=== PATIENT | male | born 1980 | race Caucasian/White ===

== ENCOUNTER → 2016-07-11 | Outpatient (CLI) | payer OTHER ==
[~2016-07-11] MED LIST: BENA25TA4 PO; BUSP10TA PO; DRIS50002 PO; GABA600T PO; HYDR-4274 PO; LATU1TAB PO; LITH1TAB4 PO; LITH300C PO; LITH30TASA PO; LITH45TASA PO; MULT1TAB8 PO; OLAN15TA PO; PAXI30TA11 PO; SERO50TA PO; TRAZO50TA PO; VITA100L PO; ZYPR5TAB2 PO
[2016-07-11 13:24] LABS: MEAN CORPUSCULAR HEMOGLOBIN 30.2 pg (27.0-33.0); MEAN CORPUSCULAR HGB CONC 34.2 g/dl (32.0-36.5); MEAN CORPUSCULAR VOLUME 88.1 fl (80.0-96.0); PLATELET COUNT, AUTOMATED 220 k/mm3 (150-450); RED CELL DISTRIBUTION WIDTH 13.2 % (11.5-14.5); WHITE BLOOD COUNT 8.1 K/mm3 (4.0-10.0)
[2016-07-11 13:41] LABS: BASOPHILS 2 % (0-4); EOSINOPHILS 8 % (0-5)
[2016-07-11 13:56] LABS: CONTROL LINE INT CTR LINE PRESENT; HIV SCRN NEGATIVE (NEGATIVE); HIV SCRN1 NEGATIVE (NEGATIVE)
[2016-07-11 14:08] LABS: ALBUMIN 4.2 GM/DL (3.2-5.2); ALKALINE PHOSPHATASE 83 U/L (45-117); ALT/SGPT 27 U/L (12-78); ANION GAP 8 MEQ/L (8-16); AST/SGOT 15 U/L (15-37); BILIRUBIN,TOTAL 1.2 MG/DL (0.2-1.0); BLOOD UREA NITROGEN 6 MG/DL (7-18); CARBON DIOXIDE LEVEL 27 MEQ/L (21-32); CHLORIDE LEVEL 108 MEQ/L (98-107); CREATININE FOR GFR 1.05 MG/DL (0.70-1.30); GLOMERULAR FILTRATION RATE > 60.0 (>60); GLUCOSE, FASTING 95 MG/DL (70-105); POTASSIUM SERUM 3.9 MEQ/L (3.5-5.1); SODIUM LEVEL 143 MEQ/L (136-145); TOTAL PROTEIN 6.3 GM/DL (6.4-8.2)
== END ==
LOC: M LAB 11:53
PROVIDERS: ATTEND Family Medicine
DX: F11.20 Opioid dependence, uncomplicated (principal)

== ENCOUNTER → 2016-08-07 | Outpatient (CLI) | payer OTHER | LOC: M LAB 10:17 | PROVIDERS: ATTEND Nurse Practitioner Psychiatric/Mental Health | DX: F31.72 Bipolar disorder, in full remission, most recent episode hypomanic (principal); Z51.81 Encounter for therapeutic drug level monitoring; Z79.899 Other long term (current) drug therapy ==

== ENCOUNTER 2016-10-20 15:59 | Emergency (ER) | payer OTHER ==
[~2016-10-20] VITALS: Ht 190.5 cm; Wt 83.9 kg
[2016-10-20] MEDS ORDERED: METH40TA PO (16:26)
[2016-10-20] MEDS ORDERED: TRAZ100T4 (16:26)
[2016-10-20] MEDS ORDERED: GABA-283 PO (16:26)
[2016-10-20] MEDS ORDERED: ALBU17IN (16:26)
[2016-10-20] MEDS ORDERED: CEFT500T3 (16:26)
[2016-10-20] MEDS ORDERED: IPRATROPIUM 0.5MG/ALBUTEROL 2.5MG INH SOL UD 3ML (DUONEB)(J7620) NEB ONE (17:00)
[2016-10-20] MEDS ORDERED: PRED20TA PO (17:58)
--- NOTE | 2016-10-20 18:00 | REP ---
CHEST, TWO VIEWS: REASON: Cough. PRIORS: None. FINDINGS: The superior mediastinal structures are midline. The cardiac silhouette is unremarkable in size, shape, and position. The diaphragmatic surfaces of the lungs are regular, and the costophrenic angles are clear. The pulmonary barriga are clear. The imaged osseous structures are intact. IMPRESSION: There is no acute cardiopulmonary disease. Signed by Eliseo Thomas DO 10/20/2016 07:11 P
[2016-10-20 18:08] VITALS: BP 134/70
== END 2016-10-20 18:09 | disposition home or self-care (01) ==
LOC: M ED 17:43
DX: J44.0 Chronic obstructive pulmonary disease with (acute) lower respiratory infection (principal); Z79.891 Long term (current) use of opiate analgesic; Z79.899 Other long term (current) drug therapy; Z79.52 Long term (current) use of systemic steroids; Z88.0 Allergy status to penicillin; Z88.2 Allergy status to sulfonamides; F17.210 Nicotine dependence, cigarettes, uncomplicated

== ENCOUNTER 2017-01-11 19:19 | Emergency (ER) | payer OTHER ==
[~2017-01-11] VITALS: Ht 190.5 cm; Wt 86.3 kg
[~2017-01-11 19:19] MED LIST changes: +ALBU17IN; +CEFT500T3; +GABA-283 PO; -HYDR-4274 PO; +HYDR50TA70 PO; +LITH300T PO; -LITH30TASA PO; +METH40TA PO; +PRED20TA PO; +TRAZ-136
[2017-01-11] MEDS ORDERED: METH40TA PO (19:33)
[2017-01-11] MEDS ORDERED: ALBU17IN INH (20:52)
[2017-01-11 21:05] VITALS: BP 110/75
--- NOTE | 2017-01-12 08:03 | REP ---
Clinical: Shortness of breath and wheezing . Comparison: 10/20/2016 . Technique: PA and lateral. Findings: The mediastinum and cardiac silhouette are normal. The lung barriga demonstrate chronic-appearing changes without acute consolidation, effusion, or pneumothorax. The skeletal structures are intact and normal. Impression: 1. No acute cardiopulmonary process. Signed by Barrett Saha MD 01/12/2017 07:54 A
--- NOTE | 2017-01-12 20:49 | ECGEPIP ---
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
== END 2017-01-11 21:31 | disposition home or self-care (01) ==
LOC: M ED 19:19
DX: J20.9 Acute bronchitis, unspecified (principal); F17.210 Nicotine dependence, cigarettes, uncomplicated

== ENCOUNTER → 2017-07-10 | Outpatient (CLI) | payer OTHER ==
[2017-07-10 15:16] LABS: HEMATOCRIT 48.8 % (42.0-52.0); HEMOGLOBIN 16.2 g/dl (14.0-18.0); MEAN CORPUSCULAR HEMOGLOBIN 29.2 pg (27.0-33.0); MEAN CORPUSCULAR HGB CONC 33.2 g/dl (32.0-36.5); MEAN CORPUSCULAR VOLUME 87.9 fl (80.0-96.0); PLATELET COUNT, AUTOMATED 195 10^3/uL (150-450); RED BLOOD COUNT 5.55 10^6/uL (4.30-6.10); RED CELL DISTRIBUTION WIDTH 13.2 % (11.5-14.5); WHITE BLOOD COUNT 6.4 10^3/uL (4.0-10.0)
[2017-07-10 15:17] LABS: ALBUMIN 4.4 GM/DL (3.2-5.2); ALBUMIN/GLOBULIN RATIO 2.44 (1.00-1.93); ALKALINE PHOSPHATASE 89 U/L (45-117); ALT/SGPT 33 U/L (12-78); ANION GAP 5 MEQ/L (8-16); AST/SGOT 19 U/L (7-37); BLOOD UREA NITROGEN 8 MG/DL (7-18); CALCIUM LEVEL 8.4 MG/DL (8.5-10.1); CARBON DIOXIDE LEVEL 31 MEQ/L (21-32); CHLORIDE LEVEL 103 MEQ/L (98-107); CREATININE FOR GFR 0.88 MG/DL (0.70-1.30); GLOMERULAR FILTRATION RATE > 60.0 (>60); GLUCOSE, FASTING 74 MG/DL (70-105); POTASSIUM SERUM 4.4 MEQ/L (3.5-5.1); SODIUM LEVEL 139 MEQ/L (136-145); TOTAL PROTEIN 6.2 GM/DL (6.4-8.2)
[2017-07-10 16:38] LABS: CHLAMYDIA DNA AMPLIFICATION NEGATIVE (NEGATIVE); GC DNA AMPLIFICATION NEGATIVE (NEGATIVE)
[2017-07-11 10:06] LABS: HEPATITIS B SURFACE ANTIGEN NEGATIVE (NEGATIVE)
[2017-07-11 10:32] LABS: HEPATITIS C VIRUS ABY INDEX < 0.0 INDEX (<0.8)
[2017-07-11 10:33] LABS: HIV 1&2 SCREEN CENTAUR NEGATIVE (NEGATIVE)
== END ==
LOC: M LAB 14:08
DX: F11.20 Opioid dependence, uncomplicated (principal)
CPT/HCPCS: 93005

== ENCOUNTER → 2017-07-31 | Outpatient (CLI) | payer OTHER ==
[2017-07-31 10:57] LABS: LITHIUM LEVEL 0.34 MEQ/L (0.60-1.20)
== END ==
LOC: M LAB 09:50
DX: F31.72 Bipolar disorder, in full remission, most recent episode hypomanic (principal)
CPT/HCPCS: 80178

== ENCOUNTER → 2018-05-25 | Outpatient (CLI) | payer MEDICAID ==
[2018-05-25 11:47] LABS: HEMATOCRIT 49.3 % (42.0-52.0); HEMOGLOBIN 16.2 g/dl (13.5-17.5); MEAN CORPUSCULAR HEMOGLOBIN 29.1 pg (27.0-33.0); MEAN CORPUSCULAR HGB CONC 32.9 g/dl (32.0-36.5); MEAN CORPUSCULAR VOLUME 88.5 fl (80.0-96.0); PLATELET COUNT, AUTOMATED 188 10^3/uL (150-450); RED BLOOD COUNT 5.57 10^6/uL (4.30-6.10); RED CELL DISTRIBUTION WIDTH 13.3 % (11.5-14.5); WHITE BLOOD COUNT 6.7 10^3/uL (4.0-10.0)
[2018-05-25 12:16] LABS: ALBUMIN 3.7 GM/DL (3.2-5.2); ALBUMIN/GLOBULIN RATIO 1.95 (1.00-1.93); ALKALINE PHOSPHATASE 90 U/L (45-117); ALT/SGPT 33 U/L (12-78); ANION GAP 7 MEQ/L (8-16); AST/SGOT 19 U/L (7-37); BILIRUBIN,TOTAL 1.4 MG/DL (0.2-1.0); BLOOD UREA NITROGEN 12 MG/DL (7-18); CALCIUM LEVEL 8.6 MG/DL (8.5-10.1); CARBON DIOXIDE LEVEL 29 MEQ/L (21-32); CHLORIDE LEVEL 108 MEQ/L (98-107); CREATININE FOR GFR 1.03 MG/DL (0.70-1.30); GLOMERULAR FILTRATION RATE > 60.0 (>60); GLUCOSE, FASTING 76 MG/DL (70-100); POTASSIUM SERUM 4.6 MEQ/L (3.5-5.1); SODIUM LEVEL 144 MEQ/L (136-145); TOTAL PROTEIN 5.6 GM/DL (6.4-8.2)
[2018-05-25 13:16] LABS: CHLAMYDIA DNA AMPLIFICATION NEGATIVE (NEGATIVE); GC DNA AMPLIFICATION NEGATIVE (NEGATIVE)
[2018-05-27 11:09] LABS: HEPATITIS B SURFACE ANTIGEN NEGATIVE (NEGATIVE)
[2018-05-27 11:39] LABS: HEPATITIS C VIRUS ABY INDEX 0.1 INDEX (<0.8); HIV 1&2 SCREEN CENTAUR NEGATIVE (NEGATIVE)
== END ==
LOC: M LAB 11:06
DX: F11.20 Opioid dependence, uncomplicated (principal)
CPT/HCPCS: 93005

== ENCOUNTER → 2018-08-23 | Outpatient (REF) | payer OTHER ==
[~2018-08-23] MED LIST changes: +ALBU17IN INH; -DRIS50002 PO; +DRIS50003 PO; -GABA-283 PO; +GABA-845 PO; -GABA600T PO; +GABA600T4 PO; -TRAZ-136; +TRAZ-163
[2018-08-23 19:03] LABS: INFLUENZA A AMPLIFICATION POSITIVE (NEGATIVE); INFLUENZA B AMPLIFICATION NEGATIVE (NEGATIVE)
== END ==
LOC: M LAB REF 17:54
PROVIDERS: ATTEND Physician Assistant
DX: J11.1 Influenza due to unidentified influenza virus with other respiratory manifestations (principal)

== ENCOUNTER → 2018-10-11 | Outpatient (REF) | payer OTHER ==
[~2018-10-11] MED LIST changes: +TRAZ1TAB6 PO; -TRAZO50TA PO
[2018-10-11 13:51] LABS: BASO % 0.7 % (0.0-1.0); EOS # 0.3 10^3/uL (0.0-0.50); EOS % 6.3 % (0.0-3.0); HEMATOCRIT 50.3 % (42.0-52.0); HEMOGLOBIN 16.9 g/dl (13.5-17.5); LYMPH # 1.1 10^3/uL (1.5-4.5); LYMPH % 26.5 % (24.0-44.0); MEAN CORPUSCULAR HEMOGLOBIN 29.8 pg (27.0-33.0); MEAN CORPUSCULAR HGB CONC 33.6 g/dl (32.0-36.5); MEAN CORPUSCULAR VOLUME 88.7 fl (80.0-96.0); MONO # 0.4 10^3/uL (0.0-0.8); MONO % 8.5 % (0.0-5.0); NEUTROPHILS # 2.5 10^3/uL (1.8-7.7); NEUTROPHILS % 57.8 % (36.0-66.0); PLATELET COUNT, AUTOMATED 150 10^3/uL (150-450); RED BLOOD COUNT 5.67 10^6/uL (4.30-6.10); WHITE BLOOD COUNT 4.3 10^3/uL (4.0-10.0)
[2018-10-11 14:01] LABS: ALBUMIN 3.9 GM/DL (3.2-5.2); ALT/SGPT 25 U/L (12-78); BILIRUBIN,TOTAL 0.7 MG/DL (0.2-1.0); BLOOD UREA NITROGEN 12 MG/DL (7-18); CALCIUM LEVEL 8.7 MG/DL (8.5-10.1); CARBON DIOXIDE LEVEL 28 MEQ/L (21-32); CHLORIDE LEVEL 107 MEQ/L (98-107); CHOLESTEROL LEVEL 143 MG/DL (<200); CHOLESTEROL RISK RATIO 3.177 (<5); CREATININE FOR GFR 0.99 MG/DL (0.70-1.30); FREE T4 1.11 NG/DL (0.76-1.46); GLOMERULAR FILTRATION RATE > 60.0 (>60); GLUCOSE, FASTING 107 MG/DL (70-100); HDL CHOLESTEROL 45 MG/DL (>40); LDL CHOLESTEROL 75 MG/DL (<100); NON-HDL-C 98 MG/DL; POTASSIUM SERUM 3.8 MEQ/L (3.5-5.1); SODIUM LEVEL 143 MEQ/L (136-145); TOTAL PROTEIN 5.7 GM/DL (6.4-8.2); TRIGLYCERIDES LEVEL 113 MG/DL (<150)
[2018-10-11 14:03] LABS: TOTAL 25(OH) VITAMIN D 23.9 NG/ML (30.0-100.0)
[2018-10-11 14:23] LABS: HEMOGLOBIN A1c 5.1 %
[2018-10-11 17:57] LABS: APPEARANCE, URINE CLEAR (CLEAR); BACTERIA, URINE AUTO NEGATIVE (NEGATIVE); BILIRUBIN, URINE AUTO NEGATIVE (NEGATIVE); BLOOD, URINE BLOOD NEGATIVE (NEGATIVE); COLOR, URINE YELLOW (YELLOW); GLUCOSE, URINE (UA) AUTO NEGATIVE (NEGATIVE); KETONE, URINE AUTO NEGATIVE (NEGATIVE); LEUKOCYTE ESTERASE, URINE AUTO NEGATIVE (NEGATIVE); NITRITE, URINE AUTO NEGATIVE (NEGATIVE); PROTEIN, URINE AUTO NEGATIVE (NEGATIVE); RBC, URINE AUTO 0 /HPF (0-3); SPECIFIC GRAVITY URINE AUTO 1.005 (1.002-1.035); SQUAMOUS EPITHELIAL CELL UR AU 0 /HPF (0-6); UROBILINOGEN, URINE AUTO 0.2 mg/dL (0.0-2.0); WBC, URINE AUTO 1 /HPF (0-3)
[2018-10-13 00:07] LABS: Lyme Disease IgG/IgM Antibodie <0.91 ISR (0.00-0.90); Lyme Disease IgM Ab Quantitati <0.80 index (0.00-0.79)
== END ==
LOC: M LAB REF 13:04
PROVIDERS: ATTEND Family Medicine
DX: Z00.01 Encounter for general adult medical examination with abnormal findings (principal); Z13.228 Encounter for screening for other metabolic disorders

== ENCOUNTER → 2019-02-24 | Outpatient (CLI) | payer OTHER | LOC: M LAB 08:48 | PROVIDERS: ATTEND Nurse Practitioner Psychiatric/Mental Health | DX: F31.61 Bipolar disorder, current episode mixed, mild (principal) ==

== ENCOUNTER → 2019-04-10 | Outpatient (CLI) | payer OTHER ==
[~2019-04-10] MED LIST changes: +PROHANCE 279.3MG/ML 15ML VIAL (A9576) As Ordered ONE; +PROHANCE 279.3MG/ML 5ML VIAL (A9576) As Ordered ONE
--- NOTE | 2019-04-10 15:05 | REP ---
MRI brain without and with IV contrast: Posterior fossa study. History: Pulsatile tinnitus. Technique: Axial, coronal, and sagittal imaging planes are utilized. T1 and T2-weighted sequences include spin-echo, fast spin echo, FLAIR, diffusion weighted, T2 3-D thin section posterior fossa, and post gadolinium enhanced images. Gadolinium enhancement dose is 17 ml of intravenous ProHance. MRI findings: The bony calvarium appears intact. Craniocervical junction and upper cervical cord are normal in appearance. There is moderate mucosal thickening affecting the maxillary sinuses bilaterally. Moderate mucosal thickening is seen in the sphenoid sinuses, right more so than left as well. Otherwise, the paranasal sinuses appear to be clear. No intraorbital abnormality is seen. Internal auditory canals are normal and symmetric. Seventh and eighth nerves are seen coursing through them. No CP angle cistern or intracanalicular mass is seen. No atypical vascular loop is appreciated. Vestibular and cochlear apparatus are unremarkable and symmetric. Postcontrast images show no abnormal contrast enhancement. No vascular abnormality is observed. Teixeira-white differentiation pattern is normal above and below the tentorium. Ventricular system is unremarkable. No evidence of intracranial hemorrhage or mass lesion. Diffusion-weighted scans show no evidence of restricted diffusion. No significant white matter abnormality is seen. No abnormal intracranial enhancement is seen post contrast. Impression: Normal MRI brain and posterior fossa IACs study. Electronically Signed by Varinder Hernandez MD 04/18/2019 04:13 P
== END ==
LOC: M RAD 10:59
PROVIDERS: ATTEND Otolaryngology
DX: H93.A9 Pulsatile tinnitus, unspecified ear (principal)
CPT/HCPCS: 70553; A9576

== ENCOUNTER → 2019-05-19 | Outpatient (CLI) | payer OTHER ==
[~2019-05-19] MED LIST changes: -PROHANCE 279.3MG/ML 15ML VIAL (A9576) As Ordered ONE; -PROHANCE 279.3MG/ML 5ML VIAL (A9576) As Ordered ONE
[2019-05-19 11:04] LABS: HEMATOCRIT 49.4 % (42.0-52.0); HEMOGLOBIN 16.3 g/dl (13.5-17.5); MEAN CORPUSCULAR HEMOGLOBIN 29.6 pg (27.0-33.0); MEAN CORPUSCULAR VOLUME 89.7 fl (80.0-96.0); PLATELET COUNT, AUTOMATED 191 10^3/uL (150-450); RED BLOOD COUNT 5.51 10^6/uL (4.30-6.10); WHITE BLOOD COUNT 4.6 10^3/uL (4.0-10.0)
--- NOTE | 2019-05-19 11:22 | ECGEPIP ---
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
[2019-05-19 11:30] LABS: ALBUMIN 4.2 GM/DL (3.2-5.2); ALT/SGPT 26 U/L (12-78); BILIRUBIN,TOTAL 1.5 MG/DL (0.2-1.0); BLOOD UREA NITROGEN 13 MG/DL (7-18); CALCIUM LEVEL 9.4 MG/DL (8.5-10.1); CARBON DIOXIDE LEVEL 32 MEQ/L (21-32); CHLORIDE LEVEL 104 MEQ/L (98-107); CREATININE FOR GFR 0.98 MG/DL (0.70-1.30); GLOMERULAR FILTRATION RATE > 60.0 (>60); GLUCOSE, FASTING 86 MG/DL (70-100); POTASSIUM SERUM 4.7 MEQ/L (3.5-5.1); SODIUM LEVEL 140 MEQ/L (136-145); TOTAL PROTEIN 6.5 GM/DL (6.4-8.2)
[2019-05-19 11:49] LABS: HEPATITIS B SURFACE ANTIGEN NEGATIVE (NEGATIVE)
[2019-05-19 14:04] LABS: HIV 1&2 SCREEN CENTAUR NEGATIVE (NEGATIVE)
[2019-05-19 15:22] LABS: CHLAMYDIA DNA AMPLIFICATION NEGATIVE (NEGATIVE); GC DNA AMPLIFICATION NEGATIVE (NEGATIVE)
== END ==
LOC: M LAB 10:04
PROVIDERS: ATTEND Family Medicine
DX: F11.20 Opioid dependence, uncomplicated (principal)

== ENCOUNTER → 2019-07-03 | Outpatient (REF) | payer OTHER ==
[2019-07-03 15:04] LABS: INFLUENZA A AMPLIFICATION NEGATIVE (NEGATIVE); INFLUENZA B AMPLIFICATION NEGATIVE (NEGATIVE)
== END ==
LOC: M LAB REF 13:43
PROVIDERS: ATTEND Physician Assistant
DX: J11.1 Influenza due to unidentified influenza virus with other respiratory manifestations (principal)

== ENCOUNTER 2019-08-25 08:11 | Emergency (ER) | payer OTHER, SELFPAY ==
[~2019-08-25] VITALS: Ht 188 cm; Wt 95.8 kg
[~2019-08-25 08:11] MED LIST changes: -TRAZ-163; +TRAZ-257
[2019-08-25] MEDS ORDERED: GABA-845 (08:23)
[2019-08-25] MEDS ORDERED: BUPR300T92 (08:23)
[2019-08-25] MEDS ORDERED: LITH600C (08:23)
--- NOTE | 2019-08-25 09:10 | REP ---
Clinical: Constipation. Technique: Two supine views of the abdomen and pelvis. Findings: Bowel gas pattern is nonspecific. No significant fecal stasis. No evidence for bowel obstruction or perforation. No organomegaly. No abnormal calcifications. Skeletal structures are intact. Impression: Normal abdominal radiographs. Electronically Signed by Barrett Saha MD 08/25/2019 09:02 A
[2019-08-25] MEDS ORDERED: NS 1,000 ML IV ONE ×2 (09:15→11:15)
[2019-08-25] MEDS ORDERED: GLYCERIN ADULT SUPP PR ONE (09:15)
[2019-08-25 09:44] LABS: INFLUENZA A AMPLIFICATION NEGATIVE (NEGATIVE); INFLUENZA B AMPLIFICATION NEGATIVE (NEGATIVE)
[2019-08-25] MEDS ORDERED: METHYLNALTREXONE BROMIDE 12 MG/0.6 ML VIAL (RELISTOR) SC ONE (09:45)
[2019-08-25] MEDS ORDERED: ONDANSETRON 4MG/2ML VIAL (J2405) IV ONE (10:00)
[2019-08-25 10:18] LABS: BASO % 0.4 % (0.0-1.0); EOS # 0.1 10^3/uL (0.0-0.5); EOS % 0.8 % (0.0-3.0); HEMOGLOBIN 17.8 g/dl (13.5-17.5); LYMPH % 3.2 % (24.0-44.0); MEAN CORPUSCULAR HEMOGLOBIN 29.5 pg (27.0-33.0); MEAN CORPUSCULAR HGB CONC 33.6 g/dl (32.0-36.5); MEAN CORPUSCULAR VOLUME 87.9 fl (80.0-96.0); MONO # 0.6 10^3/uL (0.0-0.8); MONO % 7.4 % (0.0-5.0); NEUTROPHILS # 6.6 10^3/uL (1.5-8.5); NEUTROPHILS % 87.9 % (36.0-66.0); PLATELET COUNT, AUTOMATED 157 10^3/uL (150-450); RED BLOOD COUNT 6.03 10^6/uL (4.30-6.10); WHITE BLOOD COUNT 7.6 10^3/uL (4.0-10.0)
[2019-08-25 10:53] LABS: LYMPH # 0.2 10^3/uL (1.5-5.0)
[2019-08-25 10:58] LABS: BLOOD UREA NITROGEN 20 MG/DL (7-18); CALCIUM LEVEL 8.3 MG/DL (8.5-10.1); CARBON DIOXIDE LEVEL 29 MEQ/L (21-32); CHLORIDE LEVEL 110 MEQ/L (98-107); CREATININE FOR GFR 0.97 MG/DL (0.70-1.30); GLOMERULAR FILTRATION RATE > 60.0 (>60); GLUCOSE, FASTING 136 MG/DL (70-100); LITHIUM LEVEL < 0.20 MEQ/L (0.60-1.20); POTASSIUM SERUM 4.2 MEQ/L (3.5-5.1); SODIUM LEVEL 143 MEQ/L (136-145)
[2019-08-25] MEDS ORDERED: PROMETHAZINE INJ 25 MG/ML VIAL (J2550) IV ONE (11:15)
[2019-08-25 12:24] VITALS: BP 129/64
[2019-08-25] MEDS ORDERED: ONDA4TAB6 PO (12:36)
== END 2019-08-25 12:53 | disposition home or self-care (01) ==
LOC: M ED 08:11
DX: A08.4 Viral intestinal infection, unspecified (principal); E86.0 Dehydration; Z79.51 Long term (current) use of inhaled steroids; Z79.899 Other long term (current) drug therapy; Z88.0 Allergy status to penicillin; Z88.2 Allergy status to sulfonamides
CPT/HCPCS: 36415; 74018; 80048; 80178; 85025; 87502; 96361; 96374; 96375; 99284; J2405

== ENCOUNTER 2019-10-19 01:05 | Emergency (ER) | payer SELFPAY ==
[~2019-10-19] VITALS: Ht 190.5 cm; Wt 91.8 kg
[2019-10-19 01:05] VITALS: BP 139/67
[~2019-10-19 01:05] MED LIST changes: +BUPR300T92; +GABA-845; +LITH600C; +ONDA4TAB6 PO
== END 2019-10-19 01:14 | disposition left against medical advice (07) ==
LOC: M ED 01:05
DX: Z53.29 Procedure and treatment not carried out because of patient's decision for other reasons (principal)

== ENCOUNTER → 2019-11-06 | Outpatient (CLI) | payer OTHER ==
[2019-11-06 14:38] LABS: BASO # 0.1 10^3/uL (0.0-0.2); BASO % 1.2 % (0.0-1.0); EOS # 0.3 10^3/uL (0.0-0.5); EOS % 6.6 % (0.0-3.0); HEMATOCRIT 45.9 % (42.0-52.0); HEMOGLOBIN 15.7 g/dl (13.5-17.5); LYMPH % 23.5 % (24.0-44.0); MEAN CORPUSCULAR HEMOGLOBIN 30.2 pg (27.0-33.0); MEAN CORPUSCULAR HGB CONC 34.2 g/dl (32.0-36.5); MEAN CORPUSCULAR VOLUME 88.3 fl (80.0-96.0); MONO # 0.5 10^3/uL (0.0-0.8); MONO % 11.5 % (0.0-5.0); NEUTROPHILS # 2.4 10^3/uL (1.5-8.5); PLATELET COUNT, AUTOMATED 163 10^3/uL (150-450); WHITE BLOOD COUNT 4.3 10^3/uL (4.0-10.0)
[2019-11-06 14:44] LABS: ALBUMIN 3.8 GM/DL (3.2-5.2); ALT/SGPT 37 U/L (12-78); BLOOD UREA NITROGEN 9 MG/DL (7-18); CALCIUM LEVEL 8.6 MG/DL (8.5-10.1); CARBON DIOXIDE LEVEL 30 MEQ/L (21-32); CHLORIDE LEVEL 108 MEQ/L (98-107); CHOLESTEROL LEVEL 155 MG/DL (<200); CHOLESTEROL RISK RATIO 3.875 (<5); CREATININE FOR GFR 0.86 MG/DL (0.70-1.30); GLOMERULAR FILTRATION RATE > 60.0 (>60); GLUCOSE, FASTING 78 MG/DL (70-100); HDL CHOLESTEROL 40 MG/DL (>40); LDL CHOLESTEROL 92 MG/DL (<100); LITHIUM LEVEL 0.38 MEQ/L (0.60-1.20); NON-HDL-C 115 MG/DL; POTASSIUM SERUM 4.1 MEQ/L (3.5-5.1); SODIUM LEVEL 144 MEQ/L (136-145); TOTAL PROTEIN 5.8 GM/DL (6.4-8.2); TRIGLYCERIDES LEVEL 116 MG/DL (<150)
== END ==
LOC: M WUC 12:32
PROVIDERS: ATTEND Psychiatry & Neurology Child & Adolescent Psychiatry
DX: F31.9 Bipolar disorder, unspecified (principal)

== ENCOUNTER 2020-04-16 11:51 | Emergency (ER) | payer OTHER ==
[~2020-04-16] VITALS: Ht 190.5 cm; Wt 93.6 kg
[2020-04-16 11:52] VITALS: BP 130/88
--- NOTE | 2020-04-16 13:07 | REPVR ---
PROCEDURE INFORMATION: Exam: XR Abdomen, 1 View Exam date and time: 04/16/2020 12:41 PM Age: 40 years old Clinical indication: Constipation TECHNIQUE: Imaging protocol: XR of the abdomen. Views: Frontal supine view of the abdomen. 1 View. COMPARISON: CR Abdomen,Flat Plate KUB 08/25/2019 8:55 AM FINDINGS: Gastrointestinal tract: The small bowel is not significantly air-distended. Moderate stool is present in the ascending, transverse and descending colon. The rectum contains stool measuring up to 8 cm in caliber. Bones/joints: Unremarkable. IMPRESSION: Moderate colonic stool with the rectum measuring up to 8 cm in caliber. Electronically signed by: Johnson Archuleta On 04/16/2020 13:07:38 PM
[2020-04-16] MEDS ORDERED: METHYLNALTREXONE BROMIDE 12 MG/0.6 ML VIAL (RELISTOR) SC ONE (13:15)
== END 2020-04-16 13:21 | disposition left against medical advice (07) ==
LOC: M ED 11:51
DX: K59.00 Constipation, unspecified (principal); Z53.20 Procedure and treatment not carried out because of patient's decision for unspecified reasons; F11.20 Opioid dependence, uncomplicated; Z88.0 Allergy status to penicillin; Z88.1 Allergy status to other antibiotic agents; Z88.2 Allergy status to sulfonamides

== ENCOUNTER 2020-05-25 20:00 | Emergency (ER) | payer OTHER ==
[~2020-05-25] VITALS: Ht 190.5 cm; Wt 94.8 kg
[2020-05-25 20:03] VITALS: BP 121/68
== END 2020-05-25 20:29 | disposition left against medical advice (07) ==
LOC: M ED 20:00
DX: Z53.21 Procedure and treatment not carried out due to patient leaving prior to being seen by health care provider (principal)

== ENCOUNTER → 2020-07-05 | Outpatient (CLI) | payer OTHER ==
[~2020-07-05] MED LIST changes: +E-Z-GAS II EFFERVESCENT PACKET (SODIUM BICARB./CITRIC ACID/SIMETHICONE) As Ordered ONE; +E-Z-HD 98% w/w 340GM SUSP BTL As Ordered ONE; +E-Z-PAQUE 96% w/w SUSP 176GM BTL As Ordered ONE
--- NOTE | 2020-07-05 15:50 | REP ---
INDICATION: CHRONIC THROAT CLEARING. COMPARISON: None. TECHNIQUE: This procedure was performed under the direct supervision of Dr. Hernandez. Images were reviewed with Dr. Hernandez. Liquid barium and gas producing granules were given in the erect position as well as liquid barium in the prone oblique positions in order to perform a double contrast esophagram examination. 0.9 minutes of fluoro time was utilized for this procedure. FINDINGS: A single view PA chest x-ray is submitted as a clerk secretary film. The superior mediastinal structures are midline. The heart size is within normal limits. The lungs are clear. The oral and pharyngeal stages of deglutition are unremarkable. There is cricopharyngeal hypertrophy. Esophageal transport is prompt and efficient and there is no esophagitis, stricture, mucosal ring or hiatal hernia. Gastroesophageal reflux is not demonstrated on this examination. IMPRESSION: There is cricopharyngeal hypertrophy. Otherwise, unremarkable double-contrast esophagram. <Electronically signed by Vahe Jones > 07/05/20 [id number] <Electronically signed by Sridhar Hernandez > 07/05/20 [id number]
== END ==
LOC: M RAD 08:10
PROVIDERS: ATTEND Otolaryngology
DX: R13.10 Dysphagia, unspecified (principal)

== ENCOUNTER → 2020-07-16 | Outpatient (REF) | payer OTHER ==
[~2020-07-16] MED LIST changes: -E-Z-GAS II EFFERVESCENT PACKET (SODIUM BICARB./CITRIC ACID/SIMETHICONE) As Ordered ONE; -E-Z-HD 98% w/w 340GM SUSP BTL As Ordered ONE; -E-Z-PAQUE 96% w/w SUSP 176GM BTL As Ordered ONE
[2020-07-16 22:48] LABS: AMORPHOUS SEDIMENT SMALL (NEGATIVE); APPEARANCE, URINE CLOUDY (CLEAR); BACTERIA, URINE AUTO NEGATIVE (NEGATIVE); BILIRUBIN, URINE AUTO NEGATIVE (NEGATIVE); BLOOD, URINE BLOOD NEGATIVE (NEGATIVE); CALCIUM OXALATE CRYSTALS SMALL; COLOR, URINE AMBER (YELLOW); GLUCOSE, URINE (UA) AUTO NEGATIVE (NEGATIVE); KETONE, URINE AUTO NEGATIVE (NEGATIVE); LEUKOCYTE ESTERASE, URINE AUTO TRACE (NEGATIVE); NITRITE, URINE AUTO NEGATIVE (NEGATIVE); PROTEIN, URINE AUTO NEGATIVE (NEGATIVE); RBC, URINE AUTO 2 /HPF (0-3); SPECIFIC GRAVITY URINE AUTO 1.025 (1.002-1.035); SQUAMOUS EPITHELIAL CELL UR AU 0 /HPF (0-6); WBC, URINE AUTO 0 /HPF (0-3)
== END ==
LOC: M LAB REF 22:09
PROVIDERS: ATTEND Physician Assistant
DX: N39.0 Urinary tract infection, site not specified (principal)

== ENCOUNTER → 2021-04-11 | Outpatient (CLI) | payer OTHER ==
[~2021-04-11] MED LIST changes: +GABA-283; +GABA-283 PO; -GABA-845; -GABA-845 PO; -OLAN15TA PO; +OLAN15TA13 PO
[2021-04-11 11:19] LABS: HEMOGLOBIN 16.5 g/dl (13.5-17.5); MEAN CORPUSCULAR HEMOGLOBIN 29.2 pg (27.0-33.0); MEAN CORPUSCULAR HGB CONC 33.7 g/dl (32.0-36.5); MEAN CORPUSCULAR VOLUME 86.7 fl (80.0-96.0); PLATELET COUNT, AUTOMATED 215 10^3/uL (150-450); RED BLOOD COUNT 5.65 10^6/uL (4.30-6.10); WHITE BLOOD COUNT 5.4 10^3/uL (4.0-10.0)
[2021-04-11 11:52] LABS: ALBUMIN 4.3 GM/DL (3.2-5.2); ALT/SGPT 27 U/L (12-78); BILIRUBIN,TOTAL 1.5 MG/DL (0.2-1.0); BLOOD UREA NITROGEN 10 MG/DL (7-18); CALCIUM LEVEL 9.2 MG/DL (8.5-10.1); CARBON DIOXIDE LEVEL 30 MEQ/L (21-32); CHLORIDE LEVEL 107 MEQ/L (98-107); CREATININE FOR GFR 0.98 MG/DL (0.70-1.30); GLOMERULAR FILTRATION RATE > 60.0 (>60); GLUCOSE, FASTING 82 MG/DL (70-100); POTASSIUM SERUM 4.3 MEQ/L (3.5-5.1); SODIUM LEVEL 140 MEQ/L (136-145); TOTAL PROTEIN 6.4 GM/DL (6.4-8.2)
[2021-04-11 12:08] LABS: HEPATITIS B SURFACE ANTIGEN NEGATIVE (NEGATIVE)
[2021-04-11 12:37] LABS: HIV 1&2 SCREEN CENTAUR NEGATIVE (NEGATIVE)
[2021-04-11 12:40] LABS: GC DNA AMPLIFICATION NEGATIVE (NEGATIVE)
--- NOTE | 2021-04-12 16:52 | ECGEPIP ---
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 No significant change compared with 05/19/2019. Electronically Signed on 04-12-2021 16:52:19 EDT by Macho Sheth
== END ==
LOC: M LAB 10:25
PROVIDERS: ATTEND Family Medicine
DX: F11.20 Opioid dependence, uncomplicated (principal)

== ENCOUNTER 2021-08-28 11:42 | Inpatient (IN) | payer OTHER ==
[~2021-08-28] VITALS: Ht 190.5 cm; Wt 82.7 kg
[~2021-08-28 11:42] MED LIST changes: -BUPR300T92; +BUPR300T92 PO; -GABA-283
[2021-08-28] MEDS ORDERED: NS 1,000 ML IV SCH (11:55)
[2021-08-28] MEDS ORDERED: ISOVUE-370 76% 100ML VIAL As Ordered ONE (12:21)
[2021-08-28 12:44] LABS: VENOUS BASE EXCESS -2.9 (-2.0-2.0); VENOUS HCO3 22.1 MEQ/L (23.0-27.0); VENOUS O2 SATURATION 91.1 % (60.0-80.0); VENOUS PARTIAL PRESSURE CO2 39.4 mmHg (38.0-50.0); VENOUS PARTIAL PRESSURE O2 63.6 mmHg (30.0-50.0); VENOUS PH 7.367 UNITS (7.330-7.430); VENOUS STANDARD HCO3 21.9 MEQ/L; VENOUS TOTAL CO2 23.3 MEQ/L (24.0-28.0)
[2021-08-28 12:56] LABS: HEMATOCRIT 35.7 % (42.0-52.0); HEMOGLOBIN 12.3 g/dl (13.5-17.5); MEAN CORPUSCULAR HEMOGLOBIN 28.1 pg (27.0-33.0); MEAN CORPUSCULAR HGB CONC 34.5 g/dl (32.0-36.5); MEAN CORPUSCULAR VOLUME 81.7 fl (80.0-96.0); PLATELET COUNT, AUTOMATED 222 10^3/uL (150-450); RED BLOOD COUNT 4.37 10^6/uL (4.30-6.10); WHITE BLOOD COUNT 18.7 10^3/uL (4.0-10.0)
[2021-08-28] MEDS ORDERED: LevoFLOXacin IV 750 MG in IV 1 EA IV ONE (13:20)
[2021-08-28 13:24] LABS: RSV AMPLIFICATION NEGATIVE (NEGATIVE)
[2021-08-28 13:31] LABS: ALBUMIN 1.7 GM/DL (3.2-5.2); ALT/SGPT 41 U/L (12-78); BILIRUBIN,DIRECT 3.6 MG/DL (0.0-0.2); BILIRUBIN,TOTAL 4.8 MG/DL (0.2-1.0); BLOOD UREA NITROGEN 52 MG/DL (7-18); CALCIUM LEVEL 7.5 MG/DL (8.5-10.1); CARBON DIOXIDE LEVEL 23 MEQ/L (21-32); CHLORIDE LEVEL 92 MEQ/L (98-107); CREATININE FOR GFR 2.14 MG/DL (0.70-1.30); GLOMERULAR FILTRATION RATE 36.6 (>60); GLUCOSE, FASTING 85 MG/DL (70-100); LITHIUM LEVEL < 0.20 MEQ/L (0.60-1.20); NT-PRO BNP 2007 PG/ML (<125); POTASSIUM SERUM 4.5 MEQ/L (3.5-5.1); SODIUM LEVEL 128 MEQ/L (136-145); THYROID STIMULATING HORMONE 0.914 uIU/ML (0.358-3.740)
[2021-08-28 13:32] LABS: ATYPICAL LYMPH 2 % (0-5); LYMPHOCYTES 2 % (16-44); MONOCYTES 3 % (0-5); NEUTROPHILS 71 % (28-66)
[2021-08-28 13:34] LABS: PLATELET CLUMPS SMALL AMT; PLATELET ESTIMATE NORMAL (NORMAL)
[2021-08-28 13:35] LABS: POIKILOCYTOSIS 1+; POLYCHROMASIA 1+
[2021-08-28 13:38] LABS: CRENATED RBC 1+
[2021-08-28 13:39] LABS: TOXIC VACUOLATION 1+
[2021-08-28] MEDS ORDERED: ONDA4TAB6 PO (14:02)
[2021-08-28] MEDS ORDERED: METH10CO PO (14:02)
[2021-08-28] MEDS ORDERED: CEFD300C41 PO (14:05)
[2021-08-28] MEDS ORDERED: HOME MED LIST COMPLETE! XX SCH (14:10)
[2021-08-28] MEDS ORDERED: ONDANSETRON 4MG/2ML VIAL IV PRN (14:15)
[2021-08-28] MEDS ORDERED: NICOTINE 14 MG/24 HR TRANSDERMAL TD ONE (14:55)
[2021-08-28 15:38] LABS: INR 1.29; PROTHROMBIN TIME 16.5 SECONDS (12.7-14.5)
[2021-08-28 15:39] LABS: PARTIAL THROMBOPLASTIN TIME 39.2 SECONDS (25.9-37.0)
[2021-08-28] MEDS: NS 1,000 ML IV SCH (15:53)
[2021-08-28] MEDS: HEPARIN SOD (PORCINE) 5000UNITS/ML 1ML VIAL/SYRINGE SQ SCH ×2 (15:53→20:40)
[2021-08-28] MEDS ORDERED: VANCOMYCIN HCL 1,000 MG, VIAL MATE ADAPTER 1 EACH in NS 250 ML IV ONE (16:00)
[2021-08-28] MEDS: LEVALBUTEROL 1.25 MG/0.5 ML CONCENTRATE NEB NEB SCH ×2 (16:00→20:20)
[2021-08-28] MEDS ORDERED: LEVALBUTEROL 1.25 MG/0.5 ML CONCENTRATE NEB NEB PRN (16:10)
[2021-08-28 16:34] VITALS: BP 142/83
[2021-08-28] MEDS: PANTOPRAZOLE 40MG VIAL (C9113 PER 1) IV SCH (17:05)
[2021-08-28] MEDS: GABAPENTIN 400MG CAP PO SCH (20:39)
[2021-08-28] MEDS: VANCOMYCIN HCL 1,000 MG, VIAL MATE ADAPTER 1 EACH in NS 250 ML IV SCH (20:40)
[2021-08-28 22:00] VITALS: BP 143/84
[2021-08-29] MEDS: NS 1,000 ML IV SCH ×2 (03:11→14:08)
[2021-08-29] MEDS: HEPARIN SOD (PORCINE) 5000UNITS/ML 1ML VIAL/SYRINGE SQ SCH ×3 (05:29→21:12)
[2021-08-29 06:00] VITALS: BP 141/83
[2021-08-29] MEDS: LEVALBUTEROL 1.25 MG/0.5 ML CONCENTRATE NEB NEB SCH ×4 (08:05→20:13)
[2021-08-29 08:33] LABS: HEMATOCRIT 33.7 % (42.0-52.0); HEMOGLOBIN 11.4 g/dl (13.5-17.5); MEAN CORPUSCULAR HEMOGLOBIN 27.9 pg (27.0-33.0); MEAN CORPUSCULAR HGB CONC 33.8 g/dl (32.0-36.5); MEAN CORPUSCULAR VOLUME 82.6 fl (80.0-96.0); PLATELET COUNT, AUTOMATED 224 10^3/uL (150-450); RED BLOOD COUNT 4.08 10^6/uL (4.30-6.10); WHITE BLOOD COUNT 27.7 10^3/uL (4.0-10.0)
[2021-08-29] MEDS: VANCOMYCIN HCL 1,000 MG, VIAL MATE ADAPTER 1 EACH in NS 250 ML IV SCH ×2 (08:49→21:12)
[2021-08-29] MEDS: GABAPENTIN 400MG CAP PO SCH ×3 (08:50→21:12)
[2021-08-29] MEDS: METHADONE 10 MG TAB (S0109) PO SCH (08:50)
[2021-08-29] MEDS: buPROPion **XL** TABLET 150MG (WELLBUTRIN XL) PO SCH (08:51)
[2021-08-29 09:02] LABS: ALBUMIN 1.6 GM/DL (3.2-5.2); BILIRUBIN,TOTAL 3.9 MG/DL (0.2-1.0); CALCIUM LEVEL 8.1 MG/DL (8.5-10.1); CREATININE FOR GFR 1.44 MG/DL (0.70-1.30); GLOMERULAR FILTRATION RATE 57.8 (>60); POTASSIUM SERUM 4.7 MEQ/L (3.5-5.1); TOTAL PROTEIN 5.3 GM/DL (6.4-8.2)
[2021-08-29] MEDS ORDERED: MEROPENEM INJ 2 GM in NS 100 ML IV SCH (09:50)
[2021-08-29] MEDS: MEROPENEM INJ 1 GM in IV 1 EA IV SCH ×2 (11:50→17:18)
[2021-08-29 12:39] LABS: HEPATITIS B SURFACE ANTIGEN NEGATIVE (NEGATIVE)
[2021-08-29 13:06] LABS: HEPATITIS C VIRUS ABY INDEX 0.1 INDEX (<0.8)
[2021-08-29 13:07] LABS: HEPATITIS B CORE ANTIBODY IGM NEGATIVE (NEGATIVE)
[2021-08-29 14:00] VITALS: BP 130/83
[2021-08-29] MEDS ORDERED: LevoFLOXacin IV 750 MG in IV 1 EA IV SCH (14:00)
[2021-08-29] MEDS: PANTOPRAZOLE 40MG VIAL (C9113 PER 1) IV SCH (17:18)
[2021-08-29 18:25] LABS: HIV 1&2 SCREEN CENTAUR NEGATIVE (NEGATIVE)
[2021-08-29 19:02] LABS: MONO REFLEX EBV COMP NEGATIVE (NEGATIVE)
[2021-08-29 22:00] VITALS: BP 136/83
[2021-08-30] MEDS: MEROPENEM INJ 1 GM in IV 1 EA IV SCH ×5 (01:58→22:30)
[2021-08-30] MEDS: NS 1,000 ML IV SCH ×2 (04:53→18:25)
[2021-08-30] MEDS: HEPARIN SOD (PORCINE) 5000UNITS/ML 1ML VIAL/SYRINGE SQ SCH ×3 (06:07→21:15)
[2021-08-30] MEDS: LEVALBUTEROL 1.25 MG/0.5 ML CONCENTRATE NEB NEB SCH ×4 (07:26→19:44)
[2021-08-30 08:17] LABS: HEMATOCRIT 31.4 % (42.0-52.0); HEMOGLOBIN 10.4 g/dl (13.5-17.5); MEAN CORPUSCULAR HEMOGLOBIN 27.7 pg (27.0-33.0); MEAN CORPUSCULAR HGB CONC 33.1 g/dl (32.0-36.5); MEAN CORPUSCULAR VOLUME 83.7 fl (80.0-96.0); PLATELET COUNT, AUTOMATED 193 10^3/uL (150-450); RED BLOOD COUNT 3.75 10^6/uL (4.30-6.10)
[2021-08-30 08:50] LABS: ALBUMIN 1.4 GM/DL (3.2-5.2); ALT/SGPT 52 U/L (12-78); BILIRUBIN,TOTAL 2.1 MG/DL (0.2-1.0); BLOOD UREA NITROGEN 40 MG/DL (7-18); CALCIUM LEVEL 7.8 MG/DL (8.5-10.1); CARBON DIOXIDE LEVEL 23 MEQ/L (21-32); CHLORIDE LEVEL 104 MEQ/L (98-107); CREATININE FOR GFR 0.96 MG/DL (0.70-1.30); GLOMERULAR FILTRATION RATE > 60.0 (>60); GLUCOSE, FASTING 91 MG/DL (70-100); SODIUM LEVEL 136 MEQ/L (136-145); TOTAL PROTEIN 5.6 GM/DL (6.4-8.2); VANCOMYCIN LEVEL TROUGH 16.2 UG/ML (10.0-20.0)
[2021-08-30] MEDS: VANCOMYCIN HCL 1,000 MG, VIAL MATE ADAPTER 1 EACH in NS 250 ML IV SCH ×2 (09:25→21:15)
[2021-08-30] MEDS: GABAPENTIN 400MG CAP PO SCH ×2 (09:41→14:55)
[2021-08-30] MEDS: buPROPion **XL** TABLET 150MG (WELLBUTRIN XL) PO SCH (09:41)
[2021-08-30] MEDS: METHADONE 10 MG TAB (S0109) PO SCH (09:41)
[2021-08-30] MEDS ORDERED: MEROPENEM INJ 2 GM in NS 100 ML IV SCH (13:50)
[2021-08-30 14:00] VITALS: BP 144/82
[2021-08-30] MEDS ORDERED: METOPROLOL 5 MG/5 ML VIAL IV STA (15:07)
[2021-08-30 15:17] LABS: MAGNESIUM LEVEL 2.2 MG/DL (1.8-2.4); PHOSPHORUS LEVEL 2.4 MG/DL (2.5-4.9); POTASSIUM SERUM 5.3 MEQ/L (3.5-5.1)
[2021-08-30] MEDS ORDERED: ACETAMINOPHEN TAB 650MG DOSE (2X325MG) PO PRN (15:30)
[2021-08-30 15:41] VITALS: BP 137/65
[2021-08-30 16:32] VITALS: BP 123/65
[2021-08-30] MEDS ORDERED: SODIUM PHOSPHATE INJ 20 MMOL in D5W 250 ML IV ONE (17:00)
[2021-08-30 18:19] LABS: HEMATOCRIT 30.8 % (42.0-52.0); MEAN CORPUSCULAR HEMOGLOBIN 27.6 pg (27.0-33.0); MEAN CORPUSCULAR HGB CONC 32.5 g/dl (32.0-36.5); MEAN CORPUSCULAR VOLUME 85.1 fl (80.0-96.0); PLATELET COUNT, AUTOMATED 176 10^3/uL (150-450); RED BLOOD COUNT 3.62 10^6/uL (4.30-6.10); WHITE BLOOD COUNT 19.2 10^3/uL (4.0-10.0)
[2021-08-30] MEDS: PANTOPRAZOLE 40MG VIAL (C9113 PER 1) IV SCH (18:25)
[2021-08-30 20:00] VITALS: BP 111/61
[2021-08-30 20:31] LABS: ALBUMIN 1.3 GM/DL (3.2-5.2); ALT/SGPT 79 U/L (12-78); BILIRUBIN,TOTAL 2.7 MG/DL (0.2-1.0); BLOOD UREA NITROGEN 40 MG/DL (7-18); CALCIUM LEVEL 7.5 MG/DL (8.5-10.1); CARBON DIOXIDE LEVEL 23 MEQ/L (21-32); CHLORIDE LEVEL 106 MEQ/L (98-107); CREATININE FOR GFR 0.99 MG/DL (0.70-1.30); GLOMERULAR FILTRATION RATE > 60.0 (>60); GLUCOSE, FASTING 76 MG/DL (70-100); POTASSIUM SERUM 4.8 MEQ/L (3.5-5.1); SODIUM LEVEL 138 MEQ/L (136-145); TOTAL PROTEIN 4.9 GM/DL (6.4-8.2)
[2021-08-31] VITALS: BP 112/62
[2021-08-31] MEDS: NS 1,000 ML IV SCH ×2 (03:50→13:30)
[2021-08-31 04:00] VITALS: BP 130/78
[2021-08-31] MEDS: HEPARIN SOD (PORCINE) 5000UNITS/ML 1ML VIAL/SYRINGE SQ SCH ×3 (06:25→20:54)
[2021-08-31] MEDS: MEROPENEM INJ 1 GM in IV 1 EA IV SCH ×6 (06:25→22:03)
[2021-08-31 07:13] VITALS: BP 129/64
[2021-08-31] MEDS: LEVALBUTEROL 1.25 MG/0.5 ML CONCENTRATE NEB NEB SCH ×4 (08:08→20:00)
[2021-08-31] MEDS: METHADONE 10 MG TAB (S0109) PO SCH (08:18)
[2021-08-31] MEDS: buPROPion **XL** TABLET 150MG (WELLBUTRIN XL) PO SCH (08:18)
[2021-08-31 08:47] LABS: HEMATOCRIT 29.2 % (42.0-52.0); HEMOGLOBIN 9.6 g/dl (13.5-17.5); MEAN CORPUSCULAR HEMOGLOBIN 27.7 pg (27.0-33.0); MEAN CORPUSCULAR HGB CONC 32.9 g/dl (32.0-36.5); MEAN CORPUSCULAR VOLUME 84.4 fl (80.0-96.0); PLATELET COUNT, AUTOMATED 146 10^3/uL (150-450); RED BLOOD COUNT 3.46 10^6/uL (4.30-6.10); WHITE BLOOD COUNT 18.5 10^3/uL (4.0-10.0)
[2021-08-31] MEDS: DOCUSATE SODIUM 100MG CAPSULE PO SCH ×2 (09:00→20:52)
[2021-08-31 10:31] LABS: ALBUMIN 1.2 GM/DL (3.2-5.2); ALT/SGPT 70 U/L (12-78); BILIRUBIN,TOTAL 2.6 MG/DL (0.2-1.0); BLOOD UREA NITROGEN 32 MG/DL (7-18); CALCIUM LEVEL 7.4 MG/DL (8.5-10.1); CARBON DIOXIDE LEVEL 23 MEQ/L (21-32); CHLORIDE LEVEL 106 MEQ/L (98-107); CREATININE FOR GFR 0.95 MG/DL (0.70-1.30); GLOMERULAR FILTRATION RATE > 60.0 (>60); GLUCOSE, FASTING 118 MG/DL (70-100); POTASSIUM SERUM 4.3 MEQ/L (3.5-5.1); SODIUM LEVEL 134 MEQ/L (136-145); VANCOMYCIN LEVEL TROUGH 17.8 UG/ML (10.0-20.0)
[2021-08-31] MEDS ORDERED: LACTULOSE 20 GM/30 ML SYRUP UD PO ONE (10:40)
[2021-08-31 11:31] VITALS: BP 129/74
[2021-08-31 13:08] LABS: ANTINUCLEAR ANTIBODIES DIRECT Negative (Negative)
[2021-08-31 14:09] LABS: EBV AB TO NUCLEAR ANTIGEN <18.0 U/mL (0.0-17.9); EBV VIRAL CAPSID AG IgG 61.3 U/mL (0.0-17.9); EBV VIRAL CAPSID AG IgM <36.0 U/mL (0.0-35.9)
[2021-08-31 14:26] LABS: PHOSPHORUS LEVEL 3.2 MG/DL (2.5-4.9)
[2021-08-31 16:00] VITALS: BP 134/75
[2021-08-31] MEDS: PANTOPRAZOLE 40MG VIAL (C9113 PER 1) IV SCH (17:27)
[2021-08-31 20:00] VITALS: BP 136/68
[2021-08-31] MEDS: SENNA 8.6 MG TAB (SENOKOT) PO SCH (20:53)
[2021-09-01] VITALS: BP 132/62
[2021-09-01] MEDS: NS 1,000 ML IV SCH (02:17)
[2021-09-01 04:00] VITALS: BP 124/76
[2021-09-01] MEDS: MEROPENEM INJ 1 GM in IV 1 EA IV SCH ×6 (05:12→22:50)
[2021-09-01] MEDS: HEPARIN SOD (PORCINE) 5000UNITS/ML 1ML VIAL/SYRINGE SQ SCH ×3 (05:12→21:19)
[2021-09-01 05:21] LABS: HEMATOCRIT 26.3 % (42.0-52.0); HEMOGLOBIN 8.7 g/dl (13.5-17.5); MEAN CORPUSCULAR HEMOGLOBIN 27.8 pg (27.0-33.0); MEAN CORPUSCULAR HGB CONC 33.1 g/dl (32.0-36.5); PLATELET COUNT, AUTOMATED 129 10^3/uL (150-450); RED BLOOD COUNT 3.13 10^6/uL (4.30-6.10); WHITE BLOOD COUNT 19.2 10^3/uL (4.0-10.0)
[2021-09-01 05:49] LABS: ALBUMIN 1.2 GM/DL (3.2-5.2); ALT/SGPT 59 U/L (12-78); BILIRUBIN,TOTAL 1.9 MG/DL (0.2-1.0); BLOOD UREA NITROGEN 25 MG/DL (7-18); CALCIUM LEVEL 7.2 MG/DL (8.5-10.1); CARBON DIOXIDE LEVEL 25 MEQ/L (21-32); CHLORIDE LEVEL 105 MEQ/L (98-107); CREATININE FOR GFR 0.73 MG/DL (0.70-1.30); GLOMERULAR FILTRATION RATE > 60.0 (>60); GLUCOSE, FASTING 113 MG/DL (70-100); PHOSPHORUS LEVEL 2.9 MG/DL (2.5-4.9); POTASSIUM SERUM 3.9 MEQ/L (3.5-5.1); SODIUM LEVEL 135 MEQ/L (136-145); TOTAL PROTEIN 4.8 GM/DL (6.4-8.2)
[2021-09-01] MEDS: LEVALBUTEROL 1.25 MG/0.5 ML CONCENTRATE NEB NEB SCH ×4 (08:01→20:02)
[2021-09-01 08:09] VITALS: BP 127/73
[2021-09-01] MEDS: DOCUSATE SODIUM 100MG CAPSULE PO SCH ×2 (09:00→21:00)
[2021-09-01] MEDS: buPROPion **XL** TABLET 150MG (WELLBUTRIN XL) PO SCH (09:38)
[2021-09-01] MEDS: METHADONE 10 MG TAB (S0109) PO SCH (09:39)
[2021-09-01 09:48] LABS: NT-PRO BNP 829 PG/ML (<125)
[2021-09-01 12:00] VITALS: BP 134/72
[2021-09-01 14:20] VITALS: BP 131/68
[2021-09-01] MEDS: METOPROLOL TART 12.5 MG PER 1/2 TAB PO SCH ×2 (14:27→21:18)
[2021-09-01] MEDS: PANTOPRAZOLE 40MG VIAL (C9113 PER 1) IV SCH (17:01)
[2021-09-01 19:36] LABS: IMMUNOGLOBULIN A 74.5 MG/DL (70-400); IMMUNOGLOBULIN G 1580 MG/DL (681-1648); IMMUNOGLOBULIN M 98.3 MG/DL (40-230)
[2021-09-01 19:55] VITALS: BP 121/61
[2021-09-01] MEDS: SENNA 8.6 MG TAB (SENOKOT) PO SCH (21:00)
[2021-09-02] VITALS: BP 120/63
[2021-09-02 04:05] VITALS: BP 135/72
[2021-09-02] MEDS: HEPARIN SOD (PORCINE) 5000UNITS/ML 1ML VIAL/SYRINGE SQ SCH (05:28)
[2021-09-02] MEDS: MEROPENEM INJ 1 GM in IV 1 EA IV SCH ×2 (05:28→06:20)
[2021-09-02 05:51] LABS: HEMATOCRIT 28.1 % (42.0-52.0); HEMOGLOBIN 9.1 g/dl (13.5-17.5); MEAN CORPUSCULAR HEMOGLOBIN 27.5 pg (27.0-33.0); MEAN CORPUSCULAR HGB CONC 32.4 g/dl (32.0-36.5); MEAN CORPUSCULAR VOLUME 84.9 fl (80.0-96.0); PLATELET COUNT, AUTOMATED 156 10^3/uL (150-450); RED BLOOD COUNT 3.31 10^6/uL (4.30-6.10); WHITE BLOOD COUNT 19.3 10^3/uL (4.0-10.0)
[2021-09-02 06:15] LABS: ALBUMIN 1.3 GM/DL (3.2-5.2); ALT/SGPT 65 U/L (12-78); BILIRUBIN,TOTAL 1.7 MG/DL (0.2-1.0); BLOOD UREA NITROGEN 23 MG/DL (7-18); CALCIUM LEVEL 7.5 MG/DL (8.5-10.1); CARBON DIOXIDE LEVEL 25 MEQ/L (21-32); CHLORIDE LEVEL 104 MEQ/L (98-107); GLOMERULAR FILTRATION RATE > 60.0 (>60); GLUCOSE, FASTING 88 MG/DL (70-100); POTASSIUM SERUM 4.5 MEQ/L (3.5-5.1); SODIUM LEVEL 135 MEQ/L (136-145); TOTAL PROTEIN 5.2 GM/DL (6.4-8.2)
[2021-09-02] MEDS: LEVALBUTEROL 1.25 MG/0.5 ML CONCENTRATE NEB NEB SCH ×2 (07:28→11:35)
[2021-09-02 08:08] VITALS: BP 121/69
[2021-09-02] MEDS ORDERED: VANC1PLA7 IV (08:35)
[2021-09-02] MEDS ORDERED: BUPR150T12 PO (08:35)
[2021-09-02] MEDS ORDERED: LEVA12INH NEB (08:35)
[2021-09-02] MEDS ORDERED: SENN18TA PO (08:35)
[2021-09-02] MEDS ORDERED: COLA100C5 PO (08:35)
[2021-09-02] MEDS ORDERED: METH-1177 PO (08:35)
[2021-09-02] MEDS ORDERED: MERO1VIA3 IV (08:35)
[2021-09-02] MEDS ORDERED: HEPA500023 SQ (08:35)
[2021-09-02] MEDS ORDERED: MERO1INJ8 IV (08:35)
[2021-09-02] MEDS ORDERED: METO1TAB87 PO (08:35)
[2021-09-02] MEDS ORDERED: ACET1TAB55 PO (08:35)
[2021-09-02 08:52] LABS: VANCOMYCIN RANDOM 1.2 UG/ML
[2021-09-02] MEDS ORDERED: VANCOMYCIN HCL 1,000 MG, VIAL MATE ADAPTER 1 EACH in NS 250 ML IV SCH ×2 (09:00→13:00)
[2021-09-02 09:08] VITALS: BP 135/72
[2021-09-02] MEDS: DOCUSATE SODIUM 100MG CAPSULE PO SCH (09:08)
[2021-09-02] MEDS: buPROPion **XL** TABLET 150MG (WELLBUTRIN XL) PO SCH (09:08)
[2021-09-02] MEDS: METHADONE 10 MG TAB (S0109) PO SCH (09:08)
[2021-09-02] MEDS: METOPROLOL TART 12.5 MG PER 1/2 TAB PO SCH (09:08)
[2021-09-06 08:09] LABS: IgG SERUM (part of Subclasses) 4022 mg/dL (603-1613); IgG Subclass 1 972 mg/dL (248-810); IgG Subclass 2 717 mg/dL (130-555); IgG Subclass 3 > 231 mg/dL (15-102); IgG Subclass 4 112 mg/dL (2-96)
== END 2021-09-02 12:44 | disposition short-term general hospital (02) | DRG 720 ==
LOC: EDBD 11:42 → M ED 11:42 → M ED INP 14:09 → ENRESERV 15:15 → M MSPAV 16:21 → M PCU 08-30 15:33
PROVIDERS: ADMIT Internal Medicine; ATTEND Internal Medicine
PROC: 0W9G3ZZ Drainage of Peritoneal Cavity, Percutaneous Approach (ICD-10-PCS; principal; 2021-08-31 14:00)
DX: A41.9 Sepsis, unspecified organism (principal); I26.90 Septic pulmonary embolism without acute cor pulmonale; I47.2 Ventricular tachycardia; N17.9 Acute kidney failure, unspecified; E87.2 Acidosis; J18.9 Pneumonia, unspecified organism; D83.9 Common variable immunodeficiency, unspecified; I38 Endocarditis, valve unspecified; E87.8 Other disorders of electrolyte and fluid balance, not elsewhere classified; R18.8 Other ascites; E87.1 Hypo-osmolality and hyponatremia; R16.2 Hepatomegaly with splenomegaly, not elsewhere classified; E80.4 Gilbert syndrome; F31.81 Bipolar II disorder; F41.9 Anxiety disorder, unspecified; Z90.49 Acquired absence of other specified parts of digestive tract; F11.90 Opioid use, unspecified, uncomplicated; F14.90 Cocaine use, unspecified, uncomplicated; F17.220 Nicotine dependence, chewing tobacco, uncomplicated; E80.6 Other disorders of bilirubin metabolism; Z20.822 Contact with and (suspected) exposure to COVID-19; Z79.899 Other long term (current) drug therapy; Z88.0 Allergy status to penicillin; Z88.2 Allergy status to sulfonamides; R74.01 Elevation of levels of liver transaminase levels; K59.00 Constipation, unspecified; R21 Rash and other nonspecific skin eruption; R22.43 Localized swelling, mass and lump, lower limb, bilateral; R22.33 Localized swelling, mass and lump, upper limb, bilateral; R65.20 Severe sepsis without septic shock

== ENCOUNTER → 2023-05-15 | Outpatient (REF) | payer OTHER ==
[~2023-05-15] MED LIST changes: +ACET1TAB55 PO; +BUPR150T12 PO; +CEFD300C42 PO; +COLA100C5 PO; -GABA-283 PO; +GABA-284 PO; +HEPA500023 SQ; +LEVA12INH NEB; +MERO1INJ8 IV; +MERO1VIA3 IV; +METH-1177 PO; +METH10CO PO; +METO1TAB87 PO; -PAXI30TA11 PO; +PAXI30TA12 PO; +SENN-111 PO; +VANC1PLA7 IV
[2023-05-15 18:54] LABS: BASO # 0.1 10^3/uL (0.0-0.2); BASO % 1.1 % (0.0-1.0); EOS # 0.4 10^3/uL (0.0-0.5); EOS % 7.8 % (0.0-3.0); HEMATOCRIT 45.9 % (42.0-52.0); HEMOGLOBIN 15.1 g/dl (13.5-17.5); LYMPH # 1.3 10^3/uL (1.5-5.0); MEAN CORPUSCULAR HEMOGLOBIN 29.4 pg (27.0-33.0); MEAN CORPUSCULAR HGB CONC 32.9 g/dl (32.0-36.5); MEAN CORPUSCULAR VOLUME 89.5 fl (80.0-96.0); MONO # 0.5 10^3/uL (0.0-0.8); MONO % 10.4 % (2.0-8.0); NEUTROPHILS # 2.4 10^3/uL (1.5-8.5); NEUTROPHILS % 52.5 % (36.0-66.0); PLATELET COUNT, AUTOMATED 182 10^3/uL (150-450); RED BLOOD COUNT 5.13 10^6/uL (4.30-6.10); WHITE BLOOD COUNT 4.6 10^3/uL (4.0-10.0)
[2023-05-15 19:02] LABS: ALBUMIN 4.1 G/DL (3.2-5.2); ALKALINE PHOSPHATASE 89 U/L (46-116); ALT/SGPT 32 U/L (7.0-40); AST/SGOT 24 U/L (<34); BILIRUBIN,TOTAL 1.3 MG/DL (0.3-1.2); BLOOD UREA NITROGEN 11 MG/DL (9-23); CALCIUM LEVEL 8.6 MG/DL (8.5-10.1); CARBON DIOXIDE LEVEL 30 MMOL/L (20-31); CHLORIDE LEVEL 105 MMOL/L (98-107); CHOLESTEROL LEVEL 146 MG/DL (<200); CHOLESTEROL RISK RATIO 3.08 (<5); GLOMERULAR FILTRATION RATE > 60.0 (>60); GLUCOSE, FASTING 70 MG/DL (60-100); HDL CHOLESTEROL 47.4 MG/DL (>40); LDL CHOLESTEROL 84.6 MG/DL (<100); NON-HDL-C 98.6 MG/DL; POTASSIUM SERUM 4.3 MMOL/L (3.5-5.1); SODIUM LEVEL 142 MMOL/L (136-145); THYROID STIMULATING HORMONE 1.847 uIU/ML (0.55-4.78); TOTAL 25(OH) VITAMIN D 34.2 NG/ML (20.0-100.0); TOTAL PROTEIN 5.8 G/DL (5.7-8.2); TRIGLYCERIDES LEVEL 70 MG/DL (<150)
[2023-05-15 19:50] LABS: HEMOGLOBIN A1c 4.6 % (4.0-6.0)
== END ==
LOC: M LAB REF 16:43
PROVIDERS: ATTEND Nurse Practitioner Family
DX: Z13.228 Encounter for screening for other metabolic disorders (principal)

== ENCOUNTER 2024-04-17 16:38 | Emergency (ER) | payer OTHER ==
[~2024-04-17] VITALS: Ht 190.5 cm; Wt 75.5 kg
[~2024-04-17 16:38] MED LIST changes: +BUPR-597 PO; -BUPR300T92 PO; +CEFD1CAP9 PO; -CEFD300C42 PO; +GABA-1490 PO; -GABA600T4 PO; +LITH450T11 PO; -LITH45TASA PO; -OLAN15TA13 PO; +OLAN15TA69 PO; +ONDA-282 PO; -ONDA4TAB6 PO; -SENN-111 PO; +SENN-165 PO
[2024-04-17 16:42] VITALS: TEMP 97.9
[2024-04-17] MEDS ORDERED: BUPR-597 (16:48)
[2024-04-17] MEDS ORDERED: AZIT500T5 (16:48)
[2024-04-17 17:15] LABS: BASO # 0.1 10^3/uL (0.0-0.2); BASO % 0.9 % (0.0-1.0); EOS # 0.2 10^3/uL (0.0-0.5); EOS % 4.2 % (0.0-3.0); HEMOGLOBIN 14.4 g/dl (13.5-17.5); LYMPH # 1.1 10^3/uL (1.5-5.0); LYMPH % 19.7 % (24.0-44.0); MEAN CORPUSCULAR HEMOGLOBIN 29.5 pg (27.0-33.0); MEAN CORPUSCULAR HGB CONC 33.5 g/dl (32.0-36.5); MEAN CORPUSCULAR VOLUME 88.1 fl (80.0-96.0); MONO # 0.5 10^3/uL (0.0-0.8); MONO % 8.7 % (2.0-8.0); NEUTROPHILS # 3.8 10^3/uL (1.5-8.5); PLATELET COUNT, AUTOMATED 201 10^3/uL (150-450); RED BLOOD COUNT 4.88 10^6/uL (4.30-6.10); WHITE BLOOD COUNT 5.7 10^3/uL (4.0-10.0)
[2024-04-17 17:45] LABS: CK-MB VALUE MASS 1.2 NG/ML (<3.6)
[2024-04-17 17:46] LABS: LIPASE 23 U/L (12-53)
[2024-04-17 17:48] LABS: ALBUMIN 4.2 G/DL (3.2-5.2); ALKALINE PHOSPHATASE 78 U/L (46-116); ALT/SGPT 38 U/L (7.0-40); AST/SGOT 22 U/L (<34); BILIRUBIN,DIRECT 0.3 MG/DL (<0.4); BLOOD UREA NITROGEN 16 MG/DL (9-23); CALCIUM LEVEL 9.4 MG/DL (8.5-10.1); CARBON DIOXIDE LEVEL 32 MMOL/L (20-31); CHLORIDE LEVEL 105 MMOL/L (98-107); CREATININE FOR GFR 1.02 MG/DL (0.70-1.30); GLOMERULAR FILTRATION RATE > 60.0 (>60); GLUCOSE, FASTING 92 MG/DL (60-100); POTASSIUM SERUM 4.5 MMOL/L (3.5-5.1); SODIUM LEVEL 140 MMOL/L (136-145); TOTAL PROTEIN 6.1 G/DL (5.7-8.2)
[2024-04-17 17:50] LABS: FREE T4 1.25 NG/DL (0.89-1.76)
[2024-04-17 17:59] LABS: CPK CREATINE PHOSPHOKINASE 113 U/L (46-171); MB/CK RELATIVE INDEX 1.06 (< OR =4)
[2024-04-17] MEDS ORDERED: HYDR-3363 PO (19:59)
[2024-04-17 20:00] VITALS: BP 117/63
[2024-04-17 20:07] LABS: CK-MB VALUE MASS 1.2 NG/ML (<3.6)
[2024-04-17 20:09] LABS: CPK CREATINE PHOSPHOKINASE 98 U/L (46-171); MB/CK RELATIVE INDEX 1.22 (< OR =4)
[2024-04-17 20:15] VITALS: O2SAT 97
== END 2024-04-17 20:29 | disposition home or self-care (01) ==
LOC: M ED 16:38
DX: F41.0 Panic disorder [episodic paroxysmal anxiety] (principal); F11.10 Opioid abuse, uncomplicated; F41.1 Generalized anxiety disorder; F31.9 Bipolar disorder, unspecified; Z79.899 Other long term (current) drug therapy; Z88.0 Allergy status to penicillin; Z88.2 Allergy status to sulfonamides

== ENCOUNTER → 2024-05-27 | Outpatient (REF) | payer OTHER ==
[~2024-05-27] MED LIST changes: +AZIT500T5; +BUPR-597; +HYDR-3363 PO
[2024-05-27 18:21] LABS: BASO # 0.1 10^3/uL (0.0-0.2); BASO % 1.3 % (0.0-1.0); EOS # 0.3 10^3/uL (0.0-0.5); EOS % 5.7 % (0.0-3.0); HEMATOCRIT 46.2 % (42.0-52.0); HEMOGLOBIN 15.7 g/dl (13.5-17.5); LYMPH # 1.4 10^3/uL (1.5-5.0); MEAN CORPUSCULAR HEMOGLOBIN 29.7 pg (27.0-33.0); MEAN CORPUSCULAR VOLUME 87.5 fl (80.0-96.0); MONO # 0.5 10^3/uL (0.0-0.8); MONO % 9.7 % (2.0-8.0); NEUTROPHILS # 3.2 10^3/uL (1.5-8.5); NEUTROPHILS % 58.1 % (36.0-66.0); PLATELET COUNT, AUTOMATED 209 10^3/uL (150-450); RED BLOOD COUNT 5.28 10^6/uL (4.30-6.10); WHITE BLOOD COUNT 5.5 10^3/uL (4.0-10.0)
[2024-05-27 18:31] LABS: ALBUMIN 4.2 G/DL (3.2-5.2); ALKALINE PHOSPHATASE 83 U/L (40-129); ALT/SGPT 41 U/L (7.0-40); AST/SGOT 28 U/L (<34); BLOOD UREA NITROGEN 13 MG/DL (9-23); CALCIUM LEVEL 9.7 MG/DL (8.5-10.1); CARBON DIOXIDE LEVEL 33 MMOL/L (20-31); CHLORIDE LEVEL 106 MMOL/L (98-107); CHOLESTEROL LEVEL 166 MG/DL (<200); CHOLESTEROL RISK RATIO 2.99 (<5); CREATININE FOR GFR 1.05 MG/DL (0.70-1.30); GLOMERULAR FILTRATION RATE > 60.0 (>60); GLUCOSE, FASTING 86 MG/DL (60-100); HDL CHOLESTEROL 55.5 MG/DL (>40); LDL CHOLESTEROL 97.7 MG/DL (<100); NON-HDL-C 110.5 MG/DL; POTASSIUM SERUM 4.6 MMOL/L (3.5-5.1); SODIUM LEVEL 142 MMOL/L (136-145); TOTAL 25(OH) VITAMIN D 15.9 NG/ML (20.0-100.0); TOTAL PROTEIN 6.4 G/DL (5.7-8.2); TRIGLYCERIDES LEVEL 64 MG/DL (<150)
[2024-05-27 18:33] LABS: THYROID STIMULATING HORMONE 1.864 uIU/ML (0.55-4.78)
[2024-05-27 19:06] LABS: HEMOGLOBIN A1c 4.8 % (4.0-6.0)
== END ==
LOC: M LAB REF 17:36
PROVIDERS: ATTEND Nurse Practitioner Family
DX: Z13.220 Encounter for screening for lipoid disorders (principal); Z13.29 Encounter for screening for other suspected endocrine disorder; Z13.1 Encounter for screening for diabetes mellitus

== ENCOUNTER 2024-07-24 08:07 | Emergency (ER) | payer OTHER ==
[~2024-07-24] VITALS: Ht 190.5 cm; Wt 76.2 kg
[2024-07-24] MEDS ORDERED: POLY17PO18 (08:18)
[2024-07-24] MEDS ORDERED: DOCU100C16 (08:18)
[2024-07-24 11:17] VITALS: BP 110/51; TEMP 97.9; O2SAT 100
== END 2024-07-24 11:19 | disposition home or self-care (01) ==
LOC: M ED 08:07
DX: K59.00 Constipation, unspecified (principal); F12.10 Cannabis abuse, uncomplicated; Z88.0 Allergy status to penicillin; Z88.2 Allergy status to sulfonamides; Z79.899 Other long term (current) drug therapy

== ENCOUNTER → 2024-09-30 | Outpatient (CLI) | payer OTHER ==
[~2024-09-30] MED LIST changes: +DOCU100C16; +POLY17PO18
[2024-09-30 18:33] LABS: BASO # 0.1 10^3/uL (0.0-0.2); EOS # 0.3 10^3/uL (0.0-0.5); EOS % 4.2 % (0.0-3.0); HEMATOCRIT 42.9 % (42.0-52.0); HEMOGLOBIN 14.3 g/dl (13.5-17.5); LYMPH # 1.4 10^3/uL (1.5-5.0); LYMPH % 20.9 % (24.0-44.0); MEAN CORPUSCULAR HEMOGLOBIN 29.1 pg (27.0-33.0); MEAN CORPUSCULAR HGB CONC 33.3 g/dl (32.0-36.5); MEAN CORPUSCULAR VOLUME 87.4 fl (80.0-96.0); MONO # 0.5 10^3/uL (0.0-0.8); NEUTROPHILS # 4.5 10^3/uL (1.5-8.5); NEUTROPHILS % 66.6 % (36.0-66.0); PLATELET COUNT, AUTOMATED 216 10^3/uL (150-450); RED BLOOD COUNT 4.91 10^6/uL (4.30-6.10); WHITE BLOOD COUNT 6.7 10^3/uL (4.0-10.0)
[2024-09-30 18:34] LABS: CK-MB VALUE MASS 2.4 NG/ML (<3.6)
[2024-09-30 18:37] LABS: BLOOD UREA NITROGEN 17 MG/DL (9-23); CALCIUM LEVEL 8.9 MG/DL (8.5-10.1); CARBON DIOXIDE LEVEL 31 MMOL/L (20-31); CHLORIDE LEVEL 108 MMOL/L (98-107); CPK CREATINE PHOSPHOKINASE 104 U/L (46-171); CREATININE FOR GFR 0.92 MG/DL (0.70-1.30); GLOMERULAR FILTRATION RATE > 60.0 (>60); GLUCOSE, FASTING 74 MG/DL (60-100); POTASSIUM SERUM 4.7 MMOL/L (3.5-5.1); SODIUM LEVEL 144 MMOL/L (136-145)
== END ==
LOC: M RAD 16:47
PROVIDERS: ATTEND Physician Assistant
DX: R07.89 Other chest pain (principal)

== ENCOUNTER → 2024-11-03 | Outpatient (REF) | payer OTHER ==
[~2024-11-03] MED LIST changes: -BUPR-597; -BUPR-597 PO; +BUPR-766; +BUPR-766 PO; -LITH450T11 PO; +LITH450T17 PO
== END ==
LOC: M LAB REF 12:12
PROVIDERS: ATTEND Nurse Practitioner Family
DX: J11.1 Influenza due to unidentified influenza virus with other respiratory manifestations (principal)

== ENCOUNTER 2025-05-28 19:54 | Emergency (ER) | payer OTHER ==
[~2025-05-28] VITALS: Ht 190.5 cm; Wt 73.1 kg
[2025-05-28 19:55] VITALS: BP 130/67; TEMP 98.9; O2SAT 99
== END 2025-05-28 20:13 | disposition left against medical advice (07) ==
LOC: M ED 19:54
DX: Z53.21 Procedure and treatment not carried out due to patient leaving prior to being seen by health care provider (principal)